=== PATIENT | female | born 1985 | race Two or more races ===

== ENCOUNTER 2020-07-27 05:15 | Inpatient (IN) | payer BC, SELFPAY ==
[2020-07-27] VITALS (20 sets, daily range): BP systolic 115–140; BP diastolic 64–95; PULSE 75–100; RESP 12–20; TEMP 36.3–37.3; O2SAT 95–100; BMI 29.0
[2020-07-27 05:11] LABS: ROM Internal Control Test YES-OK TO RESULT pt. (Internal QC); ROM Patient Test POSITIVE (Negative)
[2020-07-27] MEDS: Lactated Ringers 1,000 ML 999 ML IV (05:36)
--- NOTE | 2020-07-27 05:44 | NURSING ---
pt exposed to covid at baby shower on 07/11/2020. pt quarantined for [address] Duron. denies symptoms at this time
[2020-07-27 05:46] LABS: Absolute Lymphocyte Count 1.71 X10^3/uL (0.83-4.51); Absolute Neutrophil Count 5.9 X10^3/uL (2.0-7.7); Basophil# 0.06 X10^3/uL; Basophil% 0.7 % (0-1); Eosinophil# 0.11 X10^3/uL; Eosinophils% 1.3 % (0-5); Hematocrit 32.4 % (37-47); Hemoglobin 10.8 g/dL (12.0-15.0); Lymphocyte # 1.71 X10^3/ul (4.0); Lymphocyte % 20.2 % (19-41); Mean Corp Hgb Conc 33.3 g/dL (32-36); Mean Corpuscular Hgb 31.1 pg (27.0-32.0); Mean Corpuscular Volume 93.4 fL (81-99); Mean Platelet Vol. 9.9 fl (6.2-12.0); Monocyte# 0.63 X10^3/uL; Monocyte% 7.5 % (0-10); NRBC Flagged by Analyzer 0 % (0-5); Neutrophil # 5.87 X10^3/uL (2.7-7.7); Neutrophil % 69.5 % (47-70); Platelet Count 237 K/mm3 (150-450); RBC Distribution Width CV 13.2 % (11.6-14.6); RBC Distribution Width SD 45.1 fl (35.1-43.9); Red Blood Count 3.47 M/mm3 (4.2-5.4); White Blood Count 8.5 K/mm3 (4.4-11.0)
[2020-07-27] MEDS: Cefazolin 2 GM in 0.9% Normal Saline 100 ML IV (06:24)
--- NOTE | 2020-07-27 06:25 | HP.PCM_ITS ---
History Date of Admission: 07/27/20 Final MT: 08/16/20 Gestational age: 37 Weeks and 1 Days History of this : This is a 34 year-old, G [], P [], at 37 weeks gestational age. Allergies No Known Allergies Allergy (Verified 07/27/20 04:59) Home Medications: Home Medications Ferrous Sulfate [Iron] 325 mg PO DAILY 07/27/20 Vits [Prenatabs FA] 1 tab PO DAILY 07/27/20 Smoking Status: Never smoker Alcohol: None Number of Fetus(es): 1 History Past Pregnancies: Past Pregnancies Delivery Date Name GA/ Weeks Outcome Route Wt Sex Labor Length Anesthesia Delivery Location Provider FOB Labs: See [facility] prenatals Physical Exam Vitals: Vital Signs Temp Pulse Resp BP Pulse Ox 99.2 F H 88 16 131/79 H 99 07/27/20 05:51 07/27/20 05:52 07/27/20 05:51 07/27/20 05:52 07/27/20 05:52 General: Alert, Oriented x3 Abdomen: Soft, Non Tender, Non-Distended, Gravid Neurological: Cranial nerves II-XII grossly intact COMMUNICATIONS AND SIGNALS SUPERVISOR: Normal external genitalia Estimated gestational size: Appropriate for gestational size Presentation: Cephalic Assessment/Plan This is a 34 year-old, G2, P1, at 37&1 weeks gestational age. Admit to L&D MOD - proceed with repeat now as patient presents with SROM and early labor COVID negative Routine pre-op care
[2020-07-27] MEDS: Methylergonovine 0.2 MG/ML Ampul IM (06:56)
--- NOTE | 2020-07-27 07:27 | OP.PCM_ITS ---
Report of Operation Surgery/Procedure Performed:: Repeat low transverse section Description of Surgical Findings:: Normal maternal uterus and adnexa Delivery Classification: MARIA D Final MT: 08/16/20 Gestational age: 37 Weeks and 1 Days industrial robotics mechanic: Marsha Coronel Type of Anesthesia:: Spinal Date of Procedure: 07/27/20 Pre-Operative Diagnosis: (1) Prior section (2) SROM (3) Labor Post-Operative Diagnosis: Same Indications for : Repeat Elective Description of Procedure: Start time: 6:21 Stop time: 7:26 Patient taken to OR where spinal anesthesia was placed. She was prepped and draped in the normal sterile fashion in a dorsal supine position with a leftward tilt. After ensuring adequacy of anesthesia the Pfannensteil skin incision was made and carried through to the underlying fascia with a scalpel. The fascia was incised in the midline and carried laterally with the Roth scissors. The rectus muscles were in the midline and the peritoneum was entered bluntly. The bladder flap was dissected down carefully with the Metzenbaum scissors and blunt dissection. The uterus was incised in a transverse fashion and then incision extended with cephalocaudad traction. The fetus was vertex and the head was elevated to the uterine incision. With fundal pressure the head delivered. head was gently guided to allow delivery of anterior and posterior shoulders. No excess traction placed on head. Body delivered and 3VC clamped & cut in delayed fashion. Then the was handed off to the waiting RN. The placenta was delivered with gentle traction and fundal massage and the uterus was exteriorized and cleared of all clots and debris. The uterine incision was closed with 1 vicryl suture in a running locked fashion. The bovie was used to further obtain further hemostasis of the uterine incision. A second imbricating layer of monocryl was placed. The uterus was returned to the peritoneal cavity. The pelvis was irrigated & then cleared of all clots and debris. The uterine incision was reexamined and found to be hemostatic. Peritoneum was closed superiorly with 3-0 vicryl in running fashion (it was unable to be completely closed so majority was not closed). The fascia was closed with looped PDS suture in a running standard fashion. The subcutaneous tissue was examined & any bleeding bovie cauterized. The subcutaneous tissue was reapproximated with plain gut suture. The skin was closed in a subcuticular fashion by the SENIOR VICE PRESIDENT AND CHIEF INFORMATION OFFICER with me present in the labor and delivery suite. I performed the remainder of the procedure w/ assistance. Amniotic Membrane Rupture Type: Spontaneous Amniotic Fluid Description: Clear Placenta Disposition: [facility] Drain: Cadena to straight drain Fluids Replaced: 1800ml Cord Entanglement: Around neck x 2, loose Nuchal Cord Compression: Without compression Cord Vessel Description: 3 Vessels Esitmated Blood Loss (ml): 800ml Gender: Female - Vianca (1 minute): 8 (5 minute): 9 Delayed cord clamping: Yes Antibiotic Given: Ancef 2 grams IV x1, Zithromax 500 mg/5 mL X1 - Admit VTE Documentation VTE Present on Admission: No VTE Mechan Device Prophylaxis: None VTE Pharm Prophylaxis ordered?: Yes
[2020-07-27] MEDS: Oxytocin 30 units/NS 500 ml 30 UNITS/500 ML IV.SOLN 167 UNITS IV (07:56)
--- NOTE | 2020-07-27 08:30 | NURSING ---
c/s to be done as soon as pt admitted and labs resulted around [address] Vázquez
--- NOTE | 2020-07-27 09:42 | NURSING ---
IV fluid intake in OR per Chivo Reyes CRNA and Dr. Vázquez
[2020-07-27] MEDS: Senna/Docusate Sodium 1 Tablet PO (10:31)
[2020-07-27] MEDS: Lactated Ringers 1,000 ML 100 ML IV (11:01)
--- NOTE | 2020-07-27 11:08 | NURSING ---
pt has indwelling urinary catheter
[2020-07-27] MEDS: Acetaminophen 500 MG Tablet 1000 MG PO ×2 (11:10→17:44)
[2020-07-27] MEDS: Ketorolac 30 MG/ML Syringe IV ×2 (11:10→17:43)
[2020-07-27] MEDS: 0.9% Saline Lock 10 ML Syringe IV (17:44)
[2020-07-28] MEDS: Acetaminophen 500 MG Tablet 1000 MG PO ×4 (00:24→17:59)
[2020-07-28] MEDS: Ketorolac 30 MG/ML Syringe IV ×2 (00:24→06:49)
[2020-07-28] MEDS: 0.9% Saline Lock 10 ML Syringe IV ×2 (00:30→06:49)
[2020-07-28 00:39] VITALS: BP 112/71; PULSE 78; RESP 21; TEMP 36.9
[2020-07-28 07:28] LABS: Hematocrit 27.5 % (37-47); Hemoglobin 9.1 g/dL (12.0-15.0); Mean Corp Hgb Conc 33.1 g/dL (32-36); Mean Corpuscular Hgb 31.5 pg (27.0-32.0); Mean Corpuscular Volume 95.2 fL (81-99); Mean Platelet Vol. 9.2 fl (6.2-12.0); Platelet Count 195 K/mm3 (150-450); RBC Distribution Width CV 13.4 % (11.6-14.6); RBC Distribution Width SD 45.8 fl (35.1-43.9); Red Blood Count 2.89 M/mm3 (4.2-5.4); White Blood Count 10.4 K/mm3 (4.4-11.0)
--- NOTE | 2020-07-28 07:59 | PCM.PN.OB ---
Subjective: pain well controlled, average lochia. No n/v - Physical Exam Vitals/I&O's: Vital Signs Temp Pulse Resp BP Pulse Ox 98.8 F 75 18 115/71 97 07/28/20 04:27 07/28/20 04:27 07/28/20 04:27 07/28/20 04:27 07/27/20 20:05 Oxygen Delivery Method Room Air Weight: 67.585 kg Body Mass Index (BMI) 29.0 Intake and Output for Last 24 Hours 07/26/20 07/27/20 07/28/20 23:59 23:59 23:59 Intake Total 4365 / 4365 Output Total 800 / 950 1050 / 1050 Balance 3565 / 3415 -1050 / -1050 General: Alert, Cooperative, No apparent distress Abdomen: Soft, Distended - mildly, softly, Tender - appropriately Extremities: Edema - 1+ Skin: Incision - bandage- clean, dry and intact. Microbiology Past 72 Hours 07/27/20 05:30 Mucosa - Nose SARS-CoV-2 Antigen (Rapid) - Final Laboratory Results 07/28/20 07:14: WBC 10.4, RBC 2.89 L, Hgb 9.1 L, Hct 27.5 L, MCV 95.2, MCH 31.5, MCHC 33.1, RDW Std Deviation 45.8 H, RDW Coeff of Jones 13.4, Plt Count 195, MPV 9.2 Current Medications Acetaminophen (Acetaminophen 500 Mg Tablet) 1,000 mg PO Q6 [facility] Last Admin: 07/28/20 06:48 Dose: 1,000 mg Documented by: Bisacodyl (Bisacodyl 10 Mg Suppository) 10 mg RECTAL UD PRN PRN Reason: If no BM Hydrocortisone (Hydrocortisone 2.5% Crm) 1 applic TOPICAL TID PRN PRN; Protocol PRN Reason: Discomfort Methylergonovine Maleate (Methylergonovine 0.2 Mg/Ml Ampul) 0.2 mg IM X1 PRN PRN Reason: Uterine Atony Last Admin: 07/27/20 06:56 Dose: 0.2 mg Documented by: Naloxone HCl (Naloxone 0.4 Mg/Ml Syringe) 0.02 mg IV Q1M PRN PRN Reason: RR <10 and pt unresponsive Naproxen (Naproxen 250 Mg Tablet) 500 mg PO Q8 [facility] Ondansetron HCl (Ondansetron 4 Mg/2 Ml Vial) 4 mg IV Q4H PRN PRN PRN Reason: Nausea Oxycodone HCl (Oxycodone 5 Mg Tablet) 5 - 10 mg PO Q4H PRN PRN PRN Reason: Pain Score 4-10 Prochlorperazine Edisylate (Prochlorperazine 10 Mg/2 Ml Vial) 10 mg IV Q6H PRN PRN PRN Reason: NAUSEA Senna/Docusate Sodium (Senna/Docusate Sodium 1 Tablet) 0 tablet PO DAILY [facility] Last Admin: 07/27/20 10:31 Dose: 1 tablet Documented by: Simethicone (Simethicone 80 Mg Tablet) 80 mg PO PCHS PRN PRN Reason: Indigestion/stomach pain Sodium Chloride (0.9% Saline Lock 10 Ml Syringe) 5 - 15 ml IV UD PRN PRN Reason: SALINE FLUSH Last Admin: 07/28/20 06:49 Dose: 10 ml Documented by: Medical Necessity - Tobacco Use Smoking Status: Never smoker Assessment/Plan POD#1 s/p repeat c/s doing well and doing well likely d/c home tomorrow mild acute blood loss anemia superimposed on antepartum anemia, appropriate for blood loss during surgery
[2020-07-28 09:45] VITALS: BP 124/72; PULSE 77; RESP 18; TEMP 37; O2SAT 99
[2020-07-28] MEDS: Senna/Docusate Sodium 1 Tablet PO (09:57)
[2020-07-28] MEDS: Naproxen 250 MG Tablet 500 MG PO ×2 (14:56→21:58)
[2020-07-28 14:57] VITALS: BP 124/75; PULSE 83; RESP 18; TEMP 37.2; O2SAT 97
--- NOTE | 2020-07-28 16:58 | NURSING ---
Talked with patient about pain medication effectiveness. Will let nurse know if she needs something stronger for pain
--- NOTE | 2020-07-28 18:56 | NURSING ---
This RN agrees with Zahraa RN charting and patient care.
[2020-07-28 20:23] VITALS: BP 130/83; PULSE 78; RESP 16; TEMP 36.7
[2020-07-29] MEDS: Acetaminophen 500 MG Tablet 1000 MG PO ×3 (00:30→13:59)
[2020-07-29] MEDS: oxyCODONE 5 MG Tablet PO ×2 (00:33→11:06)
[2020-07-29 01:30] VITALS: BP 112/76; PULSE 82; RESP 16; TEMP 36.6
[2020-07-29] MEDS: Naproxen 250 MG Tablet 500 MG PO ×2 (06:03→13:59)
--- NOTE | 2020-07-29 07:45 | DCINST_ITS ---
Discharge Diet: No Restrictions Discharge Activity: Return to Normal Activity, May Not Drive - for 2 weeks, May not drive while taking narcotic pain medications., May Shower, May Take a Tub Bath - in 7 days. May resume sexual activity in: 4-6 weeks Lifting Restrictions: 20 pounds Additional Activity Instructions:: Nothing in the vagina for 4-6 weeks. You may return to work/school in 6 weeks. Call your doctor if your incision/area has: Continuous Slow Oozing, Sudden Increased Bleeding, Increased Pain/ Swelling, Increased Redness, Foul Smelling Discharge Call your doctor if you observe: Fever of 101 or Higher, Using more than one pad per hour - for 2 hours Suture Line Care: Avoid Pulling/Pushing, Avoid Pinching/Bending Cleanse incision/area with: Keep Dressing Clean & Dry Additional Instructions: If you experience any of the following, contact your healthcare provider. * Bleeding that soaks a pad every hour for 2 hours * Fever 100.4 or higher * Unrelieved incision or abdominal pain * Swelling, redness, discharge or bleeding from your incision or episiotomy site * Your incision begins to separate * Problems urinating (including inability to urinate or burning while urinating). * Visual changes * Severe headache * Flu-like symptoms * Pain or redness in one of both of your breasts * Pain, warmth, tenderness or swelling in your legs, especially the calf area * Frequent nausea and vomiting * Symptoms of depression or anxiety If you experience any of the following, call 911 or go to the nearest Emergency Room. * Chest pain * Problems breathing * Seizure activity * Partial or complete paralysis of a body part, slurred speech, weakness or drooping of the face, or a sudden inability to walk or hold your balance Allergies/Adverse Reactions: Allergies No Known Allergies Allergy (Verified 07/27/20 04:59) Medications to take at Discharge Ferrous Sulfate [Iron] 325 mg PO DAILY 07/27/20 Vits [Prenatabs FA] 1 tab PO DAILY 07/27/20 Ibuprofen [Motrin] 600 mg PO Q6H PRN #60 tab 07/29/20 Oxycodone [Oxyir] 2.5 - 5 mg PO Q6H PRN PRN 5 Days #15 tablet 07/29/20 The following prescriptions were given: Ibuprofen [Motrin] 600 mg PO Q6H PRN #60 tab PRN Reason: Pain Transmission Status: Pending to [id number] Oxycodone [Oxyir] 2.5 - 5 mg PO Q6H PRN PRN 5 Days #15 tablet PRN Reason: severe pain Transmission Status: Received by [id number] Follow-Up: Call to make an appointment with your doctor's office for an incision check in 1-2 weeks. You will also need a 6 week post- follow up appointment. Test results from this visit will be discussed in further detail at your follow- up appointment, if applicable. Please Follow Up With: Nishi Vázquez MD - Call to make an appointment for an in cision check in 1-2 [phone] When: You will need a post check in 6 weeks.
--- NOTE | 2020-07-29 07:46 | PCM.PN.OB ---
Subjective: pain well controlled, average lochia, no n/V, +BM - Physical Exam Vitals/I&O's: Vital Signs Temp Pulse Resp BP Pulse Ox 97.8 F 82 16 112/76 97 07/29/20 01:30 07/29/20 01:30 07/29/20 01:30 07/29/20 01:30 07/28/20 14:57 Oxygen Delivery Method Room Air Weight: 67.585 kg Body Mass Index (BMI) 29.0 Intake and Output for Last 24 Hours 07/27/20 07/28/20 07/29/20 23:59 23:59 23:59 Intake Total 4365 / 4365 Output Total 800 / 950 1050 / 1050 Balance 3565 / 3415 -1050 / -1050 General: Alert, Cooperative, No apparent distress Abdomen: Soft, Distended - mildly, softly, Tender - mildly, rojas[ropriately Extremities: Edema - 1+ Skin: Incision - bandage clean, dry and intact Microbiology Past 72 Hours 07/27/20 05:30 Mucosa - Nose SARS-CoV-2 Antigen (Rapid) - Final Current Medications Acetaminophen (Acetaminophen 500 Mg Tablet) 1,000 mg PO Q6 [facility] Last Admin: 07/29/20 06:51 Dose: 1,000 mg Documented by: Bisacodyl (Bisacodyl 10 Mg Suppository) 10 mg RECTAL UD PRN PRN Reason: If no BM Hydrocortisone (Hydrocortisone 2.5% Crm) 1 applic TOPICAL TID PRN PRN; Protocol PRN Reason: Discomfort Influenza Virus Vaccine Quadrival (Influenza Vaccine (6mos+)/Pf 0.5 Ml Syringe) 0.5 ml IM .ONCE ONE Stop: 07/29/20 10:01 Methylergonovine Maleate (Methylergonovine 0.2 Mg/Ml Ampul) 0.2 mg IM X1 PRN PRN Reason: Uterine Atony Last Admin: 07/27/20 06:56 Dose: 0.2 mg Documented by: Naloxone HCl (Naloxone 0.4 Mg/Ml Syringe) 0.02 mg IV Q1M PRN PRN Reason: RR <10 and pt unresponsive Naproxen (Naproxen 250 Mg Tablet) 500 mg PO Q8 [facility] Last Admin: 07/29/20 06:03 Dose: 500 mg Documented by: Ondansetron HCl (Ondansetron 4 Mg/2 Ml Vial) 4 mg IV Q4H PRN PRN PRN Reason: Nausea Oxycodone HCl (Oxycodone 5 Mg Tablet) 5 - 10 mg PO Q4H PRN PRN PRN Reason: Pain Score 4-10 Last Admin: 07/29/20 00:33 Dose: 5 mg Documented by: Prochlorperazine Edisylate (Prochlorperazine 10 Mg/2 Ml Vial) 10 mg IV Q6H PRN PRN PRN Reason: NAUSEA Senna/Docusate Sodium (Senna/Docusate Sodium 1 Tablet) 0 tablet PO DAILY [facility] Last Admin: 07/28/20 09:57 Dose: 2 tablet Documented by: Simethicone (Simethicone 80 Mg Tablet) 80 mg PO PCHS PRN PRN Reason: Indigestion/stomach pain Sodium Chloride (0.9% Saline Lock 10 Ml Syringe) 5 - 15 ml IV UD PRN PRN Reason: SALINE FLUSH Last Admin: 07/28/20 06:49 Dose: 10 ml Documented by: Medical Necessity - Tobacco Use Smoking Status: Never smoker Assessment/Plan POD#2 s/p repeat c/s doing well d/c home and doing well
--- NOTE | 2020-07-29 07:47 | DS.PCM_ITS ---
Discharge Date and Diagnosis Date of Admission: 07/27/20 Hospital Course and Treatment Operations: - - Repeat low transverse section Summary of Care Provided: The patient is a 34 year old female who was admitted on 07/27/2020 in spontaneous labor. She had previous section and desired repeat. Repeat low transverse section was performed without difficulty. By postoperative day #2 the patient was ambulating, urinating tolerating regular di et without difficulty. She was given routine instructions and prescriptions for discharge home. She is to follow-up in the office in 1-2 in 6 weeks or as needed. [] - Physical Exam Vitals/I&O's: Vital Signs Temp Pulse Resp BP Pulse Ox 97.8 F 82 16 112/76 97 07/29/20 01:30 07/29/20 01:30 07/29/20 01:30 07/29/20 01:30 07/28/20 14:57 Oxygen Delivery Method Room Air Weight: 67.585 kg Body Mass Index (BMI) 29.0 Intake and Output for Last 24 Hours 07/27/20 07/28/20 07/29/20 23:59 23:59 23:59 Intake Total 4365 / 4365 Output Total 800 / 950 1050 / 1050 Balance 3565 / 3415 -1050 / -1050 Microbiology Past 72 Hours 07/27/20 05:30 Mucosa - Nose SARS-CoV-2 Antigen (Rapid) - Final Current Medications Acetaminophen (Acetaminophen 500 Mg Tablet) 1,000 mg PO Q6 [facility] Last Admin: 07/29/20 06:51 Dose: 1,000 mg Documented by: Bisacodyl (Bisacodyl 10 Mg Suppository) 10 mg RECTAL UD PRN PRN Reason: If no BM Hydrocortisone (Hydrocortisone 2.5% Crm) 1 applic TOPICAL TID PRN PRN; Protocol PRN Reason: Discomfort Influenza Virus Vaccine Quadrival (Influenza Vaccine (6mos+)/Pf 0.5 Ml Syringe) 0.5 ml IM .ONCE ONE Stop: 07/29/20 10:01 Methylergonovine Maleate (Methylergonovine 0.2 Mg/Ml Ampul) 0.2 mg IM X1 PRN PRN Reason: Uterine Atony Last Admin: 07/27/20 06:56 Dose: 0.2 mg Documented by: Naloxone HCl (Naloxone 0.4 Mg/Ml Syringe) 0.02 mg IV Q1M PRN PRN Reason: RR <10 and pt unresponsive Naproxen (Naproxen 250 Mg Tablet) 500 mg PO Q8 [facility] Last Admin: 07/29/20 06:03 Dose: 500 mg Documented by: Ondansetron HCl (Ondansetron 4 Mg/2 Ml Vial) 4 mg IV Q4H PRN PRN PRN Reason: Nausea Oxycodone HCl (Oxycodone 5 Mg Tablet) 5 - 10 mg PO Q4H PRN PRN PRN Reason: Pain Score 4-10 Last Admin: 07/29/20 00:33 Dose: 5 mg Documented by: Prochlorperazine Edisylate (Prochlorperazine 10 Mg/2 Ml Vial) 10 mg IV Q6H PRN PRN PRN Reason: NAUSEA Senna/Docusate Sodium (Senna/Docusate Sodium 1 Tablet) 0 tablet PO DAILY [facility] Last Admin: 07/28/20 09:57 Dose: 2 tablet Documented by: Simethicone (Simethicone 80 Mg Tablet) 80 mg PO PCHS PRN PRN Reason: Indigestion/stomach pain Sodium Chloride (0.9% Saline Lock 10 Ml Syringe) 5 - 15 ml IV UD PRN PRN Reason: SALINE FLUSH Last Admin: 07/28/20 06:49 Dose: 10 ml Documented by: Discharge Diet: No Restrictions Discharge Activity: Return to Normal Activity, May Not Drive - for 2 weeks, May not drive while taking narcotic pain medications., May Shower, May Take a Tub Bath - in 7 days. May resume sexual activity in: 4-6 weeks Additional Activity Instructions:: Nothing in the vagina for 4-6 weeks. You may return to work/school in 6 weeks. Call your doctor if your incision/area has: Continuous Slow Oozing, Sudden Increased Bleeding, Increased Pain/ Swelling, Increased Redness, Foul Smelling Discharge Call your doctor if you observe: Fever of 101 or Higher, Using more than one pad per hour - for 2 hours Suture Line Care: Avoid Pulling/Pushing, Avoid Pinching/Bending Cleanse incision/area with: Keep Dressing Clean & Dry Home Medications: Medications to take at Discharge Ferrous Sulfate [Iron] 325 mg PO DAILY 07/27/20 Vits [Prenatabs FA] 1 tab PO DAILY 07/27/20 Ibuprofen [Motrin] 600 mg PO Q6H PRN #60 tab 07/29/20 Oxycodone [Oxyir] 2.5 - 5 mg PO Q6H PRN PRN 5 Days #15 tablet 07/29/20 Following Prescriptions Were Given to Patient: Ibuprofen [Motrin] 600 mg PO Q6H PRN #60 tab PRN Reason: Pain Transmission Status: [id number] Oxycodone [Oxyir] 2.5 - 5 mg PO Q6H PRN PRN 5 Days #15 tablet PRN Reason: severe pain Transmission Status: [id number] Please Follow Up With: Nishi Vázquez MD - Call to make an appointment for an incision check in 1-2 [phone] When: You will need a post check in 6 weeks. Medical Necessity - Tobacco Use Smoking Status: Never smoker Meaningful Use Info Meaningful Use Diagnoses (Choose all that apply): None applicable
[2020-07-29 08:50] VITALS: BP 134/84; PULSE 72; RESP 16; TEMP 36.7; O2SAT 99
[2020-07-29] MEDS: Senna/Docusate Sodium 1 Tablet PO (09:55)
[2020-07-29 13:50] VITALS: BP 130/87; PULSE 81; RESP 16; TEMP 36.7; O2SAT 99
== END 2020-07-29 16:50 | disposition home or self-care (01) | DRG 788 ==
LOC: WP 06:10
PROVIDERS: Advanced Practice Midwife; Obstetrics & Gynecology; Admitting Provider Obstetrics & Gynecology; Visit Provider Obstetrics & Gynecology
DX: O34.211 Maternal care for low transverse scar from previous cesarean delivery (principal); O69.81X0 Labor and delivery complicated by cord around neck, without compression, not applicable or unspecified; O99.02 Anemia complicating childbirth; D64.9 Anemia, unspecified; Z3A.37 37 weeks gestation of pregnancy; Z37.0 Single live birth
CPT/HCPCS: 59025; 59050; 84112; 85025; 85027; 86850; 86900; 86901; 87426; 99218; 99251; J7120; A4216; G0378; G0463; J2405